=== PATIENT | female | born 1950 | race African-American/Black ===

== ENCOUNTER 2016-07-10 00:38 | Emergency (ER) | payer OTHER, SELFPAY ==
[2016-07-10] MEDS ORDERED: Acetaminophen 500 MG TAB ONE (01:05)
[2016-07-10] MEDS ORDERED: Oseltamivir 75 MG CAP ONE (01:29)
[2016-07-10 02:05] LABS: #Basophils 0.1 thou/uL (0.0-0.2); #Lymphocytes 0.4 thou/uL (1.20-3.40); #Monocytes 0.5 thou/uL (0.11-0.59); #Neutrophils 6.5 thou/uL (1.40-6.50); %Basophils 1.1 % (0.0-1.0); %Eosinophils 0.5 % (0.0-10.0); %Lymphocytes 5.8 % (21.0-51.0); %Monocytes 6.7 % (0.0-10.0); Hematocrit 35.2 % (36.0-47.0); Mean Platelet Volume 8.3 fL (7.4-10.4); Neutrophil 85 % (42-75); Red Blood Cell (RBC) Count 4.04 mill/uL (4.20-5.40); White Blood Cell (WBC) Count 7.5 thou/uL (4.8-10.8)
[2016-07-10 02:18] LABS: ALT (SGPT) 20 U/L (0-55); AST (SGOT) 23 U/L (5-34); Alkaline Phosphatase 113 U/L (40-150); Anion Gap 14 mmol/L (10-20); BUN (Urea Nitrogen) 9 mg/dL (9.8-20.1); Bilirubin, Total 0.7 mg/dL (0.2-1.2); Calc. Creatinine Clearance 0 mL/min (70-130); Calcium 8.7 mg/dL (7.8-10.44); Carbon Dioxide 22 mmol/L (23-31); Chloride 104 mmol/L (98-107); Estimated GFR-MDRD Greater than 90; Globulin 3.9 g/dL (2.4-3.5); Lipase 9 U/L (8-78); Protein, Total 7.4 g/dL (5.8-8.1)
[2016-07-10 02:41] LABS: Bilirubin Negative (Negative); Blood, Urine Moderate (Negative); Glucose, Urine (Dipstick) 100 mg/dL (Negative); Ketone, Urine Negative (Negative); Nitrite Positive (Negative); Protein, Urine (Dipstick) 100 mg/dL (Neg-Trace)
[2016-07-10 02:44] LABS: Bacteria/HPF 4+ HPF (None Seen); RBC/HPF 21-50 HPF (0-3)
[2016-07-10] MEDS ORDERED: cefTRIAXone\\ROCEPHIN 1 GM VIAL ONE (02:49)
[2016-07-10] MEDS ORDERED: Cipro 250 MG TAB ONE (02:57)
--- NOTE | 2016-07-10 07:49 | RAD ---
TWO VIEWS CHEST: HISTORY: Cough, body aches. FINDINGS: PA and lateral views of the chest obtained on 07/10/16. Comparison is made to previous exam from 01/26. Two views chest demonstrate ectasia and calcification of the aorta. The lungs are well aerated. No evidence of active intrathoracic disease seen. No evidence of effusions, pneumonia, or pneumothora x seen. IMPRESSION: Unremarkable 2 views chest. POS: [facility]
== END 2016-07-10 03:02 | disposition home or self-care (01) ==
LOC: NAV ERS 00:38
DX: J11.1 Influenza due to unidentified influenza virus with other respiratory manifestations (principal); N15.9 Renal tubulo-interstitial disease, unspecified; E78.5 Hyperlipidemia, unspecified; E78.00 Pure hypercholesterolemia, unspecified; I10 Essential (primary) hypertension; J45.909 Unspecified asthma, uncomplicated; F41.9 Anxiety disorder, unspecified; F41.0 Panic disorder [episodic paroxysmal anxiety]; F17.210 Nicotine dependence, cigarettes, uncomplicated; Z79.899 Other long term (current) drug therapy
CPT/HCPCS: 36415; 71020; 80053; 81003; 81015; 83605; 83690; 85025; 87086; J0696

== ENCOUNTER 2016-08-03 19:44 | Emergency (ER) | payer SELFPAY ==
[2016-08-03 20:28] LABS: Bilirubin Negative (Negative); Blood, Urine Negative (Negative); Glucose, Urine (Dipstick) Negative (Negative); Ketone, Urine Negative (Negative); Nitrite Negative (Negative); Protein, Urine (Dipstick) Negative (Neg-Trace); Urobilinogen 0.2 mg/dL (0.2-1.0)
[2016-08-03 20:35] LABS: Bacteria/HPF Rare-Few HPF (None Seen); RBC/HPF None Seen HPF (0-3); Squamous Epithelial 0-3 HPF (0-3); WBC/HPF 0-3 HPF (0-3)
== END 2016-08-03 20:56 | disposition home or self-care (01) ==
LOC: NAV ERS 19:44
DX: N39.0 Urinary tract infection, site not specified (principal); E78.5 Hyperlipidemia, unspecified; E78.00 Pure hypercholesterolemia, unspecified; I10 Essential (primary) hypertension; J45.909 Unspecified asthma, uncomplicated; F41.0 Panic disorder [episodic paroxysmal anxiety]; F17.210 Nicotine dependence, cigarettes, uncomplicated
CPT/HCPCS: 81003; 81015; 99283

== ENCOUNTER 2016-10-06 00:40 | Emergency (ER) | payer SELFPAY ==
[2016-10-06] MEDS ORDERED: Ibuprofen 200 MG TAB ONE (01:13)
== END 2016-10-06 01:50 | disposition home or self-care (01) ==
LOC: NAV ERS 00:40
DX: S39.82XA Other specified injuries of lower back, initial encounter (principal); E78.5 Hyperlipidemia, unspecified; I10 Essential (primary) hypertension; J45.909 Unspecified asthma, uncomplicated; F41.0 Panic disorder [episodic paroxysmal anxiety]; Z87.891 Personal history of nicotine dependence; V49.49XA Driver injured in collision with other motor vehicles in traffic accident, initial encounter
CPT/HCPCS: 99283

== ENCOUNTER 2017-01-17 17:14 | Emergency (ER) | payer SELFPAY | END 2017-01-17 17:54 | disposition home or self-care (01) | LOC: NAV ERS 17:14 | DX: L03.115 Cellulitis of right lower limb (principal); B35.3 Tinea pedis; E78.5 Hyperlipidemia, unspecified; I10 Essential (primary) hypertension; J45.909 Unspecified asthma, uncomplicated; F41.9 Anxiety disorder, unspecified; F17.210 Nicotine dependence, cigarettes, uncomplicated | CPT/HCPCS: 99283 ==

== ENCOUNTER 2020-03-28 00:32 | Emergency (ER) | payer OTHER, SELFPAY ==
[2020-03-28] MEDS ORDERED: Ketorolac Tromethamine 60 MG/2 ML VIAL ONE (01:16)
[2020-03-28 01:49] LABS: Mean Corpuscular HGB CONC 32.8 g/dL (32.0-36.0); Mean Corpuscular Hemoglobin 30.3 pg (27.0-31.0); Mean Corpuscular Volume 92.4 fL (78.0-98.0); Mean Platelet Volume 7.6 fL (7.4-10.4); Platelet Count 236 thou/uL (130-400); RBC Distribution Width 12.2 % (11.5-14.5); Red Blood Cell (RBC) Count 3.97 mill/uL (4.20-5.40); White Blood Cell (WBC) Count 5.2 thou/uL (4.8-10.8)
[2020-03-28 02:01] LABS: Band 3 % (5-11); Eosinophils 2 % (0-10); Lymphocytes 60 % (21-51); MDiff Complete? YES; Monocytes 4 % (0-10); Neutrophil 31 % (42-75); Platelet Morphology Comment Appears Adequate; RBC Morphology Normal
[2020-03-28 02:06] LABS: ALT (SGPT) 15 U/L (8-55); AST (SGOT) 23 U/L (5-34); Albumin 3.6 g/dL (3.4-4.8); Alkaline Phosphatase 143 U/L (40-110); Anion Gap 16 mmol/L (10-20); BUN (Urea Nitrogen) 7 mg/dL (9.8-20.1); Bilirubin, Total 0.3 mg/dL (0.2-1.2); CK (CPK) 173 U/L (29-168); Calc. Creatinine Clearance 0 mL/min (70-130); Carbon Dioxide 23 mmol/L (23-31); Chloride 105 mmol/L (98-107); Estimated GFR-MDRD Greater than 90; Globulin 4.2 g/dL (2.4-3.5); Glucose 87 mg/dL (80-115); Potassium 3.5 mmol/L (3.5-5.1); Protein, Total 7.8 g/dL (6.0-8.3); Sodium 140 mmol/L (136-145)
[2020-03-28] MEDS ORDERED: traMADol HCl 50 MG TAB ONE (02:41)
--- NOTE | 2020-03-28 08:08 | RAD ---
RIGHT HUMERUS 2 VIEWS: Date: 03/28/2020 INDICATION: Pain. COMPARISON: 02/10/2003. FINDINGS: No evidence of fracture or acute osseous abnormality. Numerous metallic BBs overlie the distal arm an d elbow region. These BBs were present on the prior study and indicate soft tissue BBs. IMPRESSION: No acute process. POS: [facility]
--- NOTE | 2020-03-28 08:10 | RAD ---
RIGHT SHOULDER 3 VIEWS: Date: 03/28/2020 HISTORY: Pain. FINDINGS: No evidence of fracture or dislocation. Soft tissue calcific densities along the superior edge of the distal clavicle is noted and was faintly visible on exam from 2002. Numerous BBs overlie the soft ti ssues of the distal arm. IMPRESSION: No acute findings. POS: [facility]
== END 2020-03-28 02:50 | disposition home or self-care (01) ==
LOC: NAV ERS 00:32
DX: M79.621 Pain in right upper arm (principal); E78.5 Hyperlipidemia, unspecified; E78.00 Pure hypercholesterolemia, unspecified; I10 Essential (primary) hypertension; J45.909 Unspecified asthma, uncomplicated; F32.9 Major depressive disorder, single episode, unspecified; F41.0 Panic disorder [episodic paroxysmal anxiety]; Z87.891 Personal history of nicotine dependence
CPT/HCPCS: 80053; 82550; 85025; 85379; 96372; J1885